=== PATIENT | male | born 1945 | race Two or more races ===

== ENCOUNTER 2017-10-15 23:31 | Outpatient (CLI) | payer SELFPAY | END 2017-10-15 23:32 | disposition EMS.NT | LOC: EMS 23:31 | PROVIDERS: ATTEND Surgery | DX: Z03.89 Encounter for observation for other suspected diseases and conditions ruled out (principal) ==

== ENCOUNTER 2021-10-23 08:00 | Outpatient (CLI) | payer MEDICARE | END 2021-10-23 23:59 | disposition home or self-care (01) | LOC: COV 08:00 | PROVIDERS: ATTEND Emergency Medicine | DX: K52.9 Noninfective gastroenteritis and colitis, unspecified (principal); Z20.822 Contact with and (suspected) exposure to COVID-19 ==

== ENCOUNTER 2021-11-06 15:21 | Emergency (ER) | payer MEDICARE ==
[2021-11-06 16:27] LABS: BASOPHILS # (AUTO) 0.1 10^3/uL (0.0-0.1); BASOPHILS % (AUTO) 0.4 %; EOSINOPHILS % (AUTO) 0.2 %; HCT - HEMATOCRIT 43.5 % (42.0-52.0); HGB - HEMOGLOBIN 14.6 g/dL (14.0-18.0); LYMPHOCYTES # (AUTO) 0.9 10^3/uL (1.5-3.5); LYMPHOCYTES % (AUTO) 5.4 %; MEAN CORPUSCULAR HEMOGLOBIN 31.7 pg (27.0-31.0); MEAN CORPUSCULAR HGB CONC 33.6 g/dL (32.0-36.0); MEAN CORPUSCULAR VOLUME 94.4 fL (80.0-94.0); MEAN PLATELET VOLUME 9.3 fL (7.4-11.4); MONOCYTES # (AUTO) 0.8 10^3/uL (0.0-1.0); MONOCYTES % (AUTO) 5.1 %; NEUTROPHILS # (AUTO) 14.2 10^3/uL (1.5-6.6); NEUTROPHILS % (AUTO) 88.2 %; PLT - PLATELET COUNT 233 10^3/uL (130-450); RED BLOOD COUNT 4.61 10^6/uL (4.70-6.10); RED CELL DISTRIBUTION WIDTH 13.2 % (12.0-15.0); WHITE BLOOD COUNT 16.1 x10^3/uL (4.8-10.8)
[2021-11-06] MEDS ORDERED: IOPAMIDOL-300 100 ML VIAL ONE (16:36)
[2021-11-06 16:40] LABS: ALBUMIN 3.7 g/dL (3.2-5.5); ALBUMIN/GLOBULIN RATIO 1.2 (1.0-2.2); BILIRUBIN,TOTAL 2.1 mg/dL (0.2-1.0); CALCIUM 9.4 mg/dL (8.5-10.3); CREATININE 1.6 mg/dL (0.6-1.2); POTASSIUM 4.2 mmol/L (3.5-5.0); TOTAL PROTEIN 6.9 g/dL (6.7-8.2)
[2021-11-06 16:47] LABS: BILIRUBIN,URINE NEGATIVE (NEGATIVE); GLUCOSE, URINE (UA) NEGATIVE (NEGATIVE); KETONES,URINE (UA) NEGATIVE (NEGATIVE); LEUKOCYTE ESTERASE, URINE MODERATE (NEGATIVE); NITRITE,URINE POSITIVE (NEGATIVE); OCCULT BLOOD,URINE LARGE (NEGATIVE); PROTEIN,URINE 100 mg/dL (NEGATIVE); UROBILINOGEN,URINE 0.2 (NORMAL) E.U./dL (NORMAL)
[2021-11-06 16:48] LABS: CLARITY,URINE CLOUDY (CLEAR)
[2021-11-06 17:02] LABS: BACTERIA,URINE Many /HPF (None Seen); RBC,URINE TNTC /HPF (0-5); SQUAMOUS EPITHELIAL CELL,UR NONE SEEN (<= Few); WBC,URINE >25 /HPF (0-3)
[2021-11-06] MEDS ORDERED: cefTRIAXone 1 GM in SODIUM CHLORIDE 0.9% MINIBAG 100 ML IV STA (17:02)
[2021-11-06] MEDS ORDERED: IOPAMIDOL-300 100 ML VIAL IVP ONE (17:04)
--- NOTE | 2021-11-06 17:05 | ED Physician Documentation ---
PD HPI ABD PAIN - Stated complaint Stated Complaint: ABD PX/CONSTIPATED - Chief complaint Chief Complaint: Abd Pain - History obtained from History obtained from: Patient, Family - History of Present Illness Timing - onset: Today Timing - duration: Hours Timing - details: Gradual onset, Still present Quality: Cramping, Pain Location: Suprapubic Improved by: Laying still Worsened by: Palpation, Other (attempting BM) Associated symptoms: Nausea, Constipation. 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 He has been out of the hospital now for 4 days and today he was not able to have a bowel movement and felt some pain in the suprapubic area and has come to the emergency department for evaluation. Review of Systems Constitutional: denies: Fever, Myalgias Eyes: denies: Decreased vision Ears: denies: Ear pain Nose: denies: Congestion Throat: denies: Sore throat Cardiac: denies: Chest pain / pressure, Palpitations Respiratory: denies: Dyspnea GI: reports: Abdominal Pain, Nausea, Constipation. denies: Vomiting : reports: Frequency, Incontinent. denies: Dysuria Skin: denies: Rash Musculoskeletal: denies: Neck pain, Back pain, Extremity pain Neurologic: denies: Generalized weakness, Focal weakness, Numbness PD PAST MEDICAL HISTORY - Present Medications Home Medications: Ambulatory Orders Medication Instructions Recorded Confirmed amLODIPine [Norvasc] 10 mg PO DAILY 11/06/21 11/06/21 - Allergies Allergies/Adverse Reactions: Allergies Allergy/AdvReac Type Severity Reaction Status Date / Time hydrochlorothiazide AdvReac Unknown Verified 11/06/21 15:41 PD ED PE NORMAL - Vitals Vital signs reviewed: Yes (tachy nad tachypneic hypertensive ) - General General: Alert and oriented X 3, No acute distress, Well developed/nourished - HEENT HEENT: Atraumatic, PERRL, EOMI - Neck Neck: Supple, no meningeal sign, No bony TTP - Cardiac Cardiac: No murmur, Other (tachy to 100) - Respiratory Respiratory: No respiratory distress, Clear bilaterally - Abdomen Abdomen: Normal bowel sounds, Soft, Other (mild suprapubic tenderness is reproducible ) - Back Back: No CVA TTP, No spinal TTP - Derm Derm: Normal color, Warm and dry, No rash - Extremities Extremities: No deformity, No edema - Neuro Neuro: Alert and oriented X 3, powerbuilder 2-12 intact, No motor deficit, No sensory deficit, Normal speech Eye Opening: Spontaneous Motor: Obeys Commands Verbal: Oriented GCS Score: 15 - Psych Psych: Normal mood, Normal affect Results - Vitals Vitals: Vital Signs - 24 hr 11/06/21 11/06/21 15:29 16:09 Temperature 37.6 C Heart Rate 110 H 102 H Respiratory 26 H Rate Blood Pressure 141/97 H 133/84 H O2 Saturation 96 94 Oxygen O2 Source Room air - Labs Labs: Laboratory Tests 11/06/21 11/06/21 11/06/21 16:20 16:20 16:30 WBC 16.1 H RBC 4.61 L Hgb 14.6 Hct 43.5 MCV 94.4 H MCH 31.7 H MCHC 33.6 RDW 13.2 Plt Count 233 MPV 9.3 Neut # (Auto) 14.2 H Lymph # (Auto) 0.9 L [place] # (Auto) 0.8 Eos # (Auto) 0.0 Baso # (Auto) 0.1 Absolute Nucleated RBC 0.00 Nucleated RBC % 0.0 Sodium 136 Potassium 4.2 Chloride 99 L Carbon Dioxide 24 Anion Gap 13.0 BUN 16 Creatinine 1.6 H Estimated GFR (MDRD) 42 L Glucose 139 H Calcium 9.4 Total Bilirubin 2.1 H AST 21 ALT 28 Alkaline Phosphatase 51 Total Protein 6.9 Albumin 3.7 Globulin 3.2 Albumin/Globulin Ratio 1.2 Lipase 21 L Urine Color DARK YELLOW Urine Clarity CLOUDY Urine pH 6.0 Ur Specific [place] 1.015 Urine Protein 100 H Urine Glucose (UA) NEGATIVE Urine Ketones NEGATIVE Urine Occult Blood LARGE H Urine Nitrite POSITIVE H Urine Bilirubin NEGATIVE Urine Urobilinogen 0.2 (NORMAL) Ur Leukocyte Esterase MODERATE H Urine RBC TNTC H Urine WBC >25 H Ur Squamous Epith Cells NONE SEEN Urine Bacteria Many H Ur Microscopic Review INDICATED Urine Culture Comments INDICATED - Rads (name of study) CT ab/pel with Radiology: Prelim report reviewed (Impression: 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 Obstructing calculi in the distal bilateral ureters with mild right and moderate left hydroureter nephrosis. Urologic consultation is recommended cholelithiasis.), EMP read indepedently, See rad report PD MEDICAL DECISION MAKING - ED course Complexity details: reviewed results, re-evaluated patient, considered differential, d/w patient, d/w family ED course: 76 y/o male with abdominal pain is found to have infection in the neobladder as well as bilateral obstructing stones in the ureter. He has elevated WBC, tachycardia, an infection source and obstruction of ureters bilaterally. He is administered IV saline and rocephin and a bed in a hospital with a urologist is sought. At shift change his care is turned over to Dr. Tejeda awaiting a bed for transfer. Departure - Departure Disposition: 02 Transfer Acute Care Hosp Clinical Impression: Urinary tract infection Qualifiers: Urinary tract infection type: acute cystitis Hematuria presence: with hematuria Qualified Code(s): N30.01 - Acute cystitis with hematuria Ureteral obstruction Qualifiers: Laterality: bilateral Qualified Code(s): N13.5 - Crossing vessel and stricture of ureter without hydronephrosis
[2021-11-06] MEDS ORDERED: SODIUM CHLORIDE 0.9% 1,000 ML IV STA ×4 (17:09→23:17)
--- NOTE | 2021-11-06 17:31 | CT Report ---
PROCEDURE: Abdomen/Pelvis W INDICATIONS: L suprapubic pain CONTRAST: IV CONTRAST: Isovue 300 ml: 100 PO CONTRAST: *NO PO CONTRAST TECHNIQUE: After the administration of intravenous contrast, 5 mm thick sections acquired from the diaphragms to the symphysis. 5 mm thick coronal and sagittal reformats were acquired. For radiation dose reducti on, the following was used: automated exposure control, adjustment of mA and/or kV according to celio ent size. COMPARISON: None. FINDINGS: Urinary system: There are postsurgical changes of what appears to represent total cystectomy and neobladder reconstru ction. Moderate left hydroureteronephrosis due to a 4 mm distal left ureteral calculus (series 3:67 and seri es 6:32). Moderate left perinephric fat stranding. Nonobstructing punctate calculus in the left upper pole collecting system on series 3 image 33. Mild right hydroureteronephrosis due to 7 mm distal right ureteral calculus (series 3:69 and series 6 :32). Remaining findings: Included portions of the lung bases demonstrate no acute airspace opacity. Mild bibasilar atelectasis. Coronary atherosclerosis. Calcified gallstone layering dependently in the gallbladder measuring up to 2.2 cm. No gallbladder wall thickening or pericholecystic fluid/fat stranding. No acute finding in the liver. Approximately 1.4 cm left hepatic hypodensity likely a cyst on the basis of conspicuity. Normal size and appearance of the spleen. Adrenal glands normal. Numerous pancreatic calcifications suggesting chronic pancreatitis or recurrent prior acute pancreati tis. No peripancreatic fat stranding currently. No pancreatic ductal dilatation. No free fluid or pneumoperitoneum. No abnormally dilated or thickened loops of bowel. Terminal ileal anastomosis noted. Sigmoid diverticulosis. No acute or suspicious osseous lesion. IMPRESSION: Post surgical changes of total cystectomy with neobladder reconstruction. Obstructing calculi in the distal bilateral ureters with mild right and moderate left hydroureteronephrosis. Urologic consultati on recommended. Cholelithiasis. Reviewed by: Steve Becerra MD on 11/06/2021 5:30 PM PST Approved by: Steve Becerra MD on 11/06/2021 5:30 PM PST Station ID: [id number]
--- NOTE | 2021-11-06 17:36 | ED Physician Documentation ---
ED Addendum - Addendum Addendum: 11/06/21 17:36 Patient received in signout from Dr. Jaramillo at shift change. Briefly this is a 76-year-old gentleman with history of neobladder and kidney stones who presents with abdominal pain and was found to be febrile with a white count of 16,000 and evidence of UTI. CT showing bilateral obstructing ureterolithiasis causing mild right and moderate left hydroureter nephrosis. Call to [facility] for potential transfer was initiated as he will need urologic consultation and he do es fit criteria for UTI with sepsis. Patient updated at bedside, he appears well and has no voiced needs at this time. 11/06/21 17:59 Discussed case by phone with Dr. Solorio at [facility]. He will try to find a bed but already notes they have tried [place] and they are full. He also authorized if we found a non-[facility] facility that would be authorized.
[2021-11-06] MEDS ORDERED: MORPHINE 2 MG/ML CARPUJECT IVP STA (18:31)
[2021-11-06] MEDS ORDERED: ACETAMINOPHEN 325 MG TABLET PO STA (18:31)
[2021-11-06 19:11] LABS: B. PARAPERTUSSIS- RESP PCR PAN NOT DETECTED; B. PERTUSSIS- RESP PCR PANEL NOT DETECTED; C. PNEUMONIAE- RESP PCR PANEL NOT DETECTED; CORONAVIRUS 229E-RESP PCR NOT DETECTED; CORONAVIRUS HKU1-RESP PCR NOT DETECTED; CORONAVIRUS NL63-RESP PCR NOT DETECTED; CORONAVIRUS OC43-RESP PCR NOT DETECTED; HUMAN METAPNEUMOVIRUS NOT DETECTED; INFLUENZA A- RESP PCR PANEL NOT DETECTED; INFLUENZA B - RESP PCR PANEL NOT DETECTED; M. PNEUMONIAE- RESP PCR PANEL NOT DETECTED; PARAINFLUENZA VIRUS 1 NOT DETECTED; PARAINFLUENZA VIRUS 2 NOT DETECTED; PARAINFLUENZA VIRUS 3 NOT DETECTED; PARAINFLUENZA VIRUS 4 NOT DETECTED; RHINOVIRUS/ENTEROVIRUS NOT DETECTED; RSV- RESP PCR PANEL NOT DETECTED; SARS-CoV-2 -RESP PCR PANEL NOT DETECTED
--- NOTE | 2021-11-06 22:00 | ED Physician Documentation ---
ED Addendum - Addendum Addendum: 11/06/21 22:00 Discussed case with [facility], will look for available bed 11/07/21 04:14 Case d/w Dr. Chery (hospitalist at [facility]), accepts patient for transfer, recommends IV fluid bolus of 30 ml/kg (which I then ordered as 2 liters, as he has already received one liter on previous shift). I broadened the antibiotic coverage by ordering vancomycin and meropenem (had received rocephin on earlier shift). Patient's blood pressures remained within normal limits during ED stay, briefly down to upper 90s systolic with subsequent readings showing improvement.
[2021-11-06 22:33] LABS: BASOPHILS # (AUTO) 0.1 10^3/uL (0.0-0.1); BASOPHILS % (AUTO) 0.4 %; EOSINOPHILS % (AUTO) 0.1 %; HCT - HEMATOCRIT 41.2 % (42.0-52.0); LYMPHOCYTES # (AUTO) 0.8 10^3/uL (1.5-3.5); LYMPHOCYTES % (AUTO) 5.3 %; MEAN CORPUSCULAR HEMOGLOBIN 31.7 pg (27.0-31.0); MEAN CORPUSCULAR VOLUME 93.2 fL (80.0-94.0); MEAN PLATELET VOLUME 9.2 fL (7.4-11.4); MONOCYTES # (AUTO) 0.6 10^3/uL (0.0-1.0); MONOCYTES % (AUTO) 4.1 %; NEUTROPHILS # (AUTO) 12.7 10^3/uL (1.5-6.6); NEUTROPHILS % (AUTO) 89.1 %; PLT - PLATELET COUNT 166 10^3/uL (130-450); RED BLOOD COUNT 4.42 10^6/uL (4.70-6.10); RED CELL DISTRIBUTION WIDTH 13.2 % (12.0-15.0); WHITE BLOOD COUNT 14.3 x10^3/uL (4.8-10.8)
[2021-11-06 22:42] LABS: CALCIUM 8.3 mg/dL (8.5-10.3); CREATININE 1.8 mg/dL (0.6-1.2); POTASSIUM 3.4 mmol/L (3.5-5.0)
[2021-11-06] MEDS ORDERED: VANCOMYCIN INJ 1.5 GM in SODIUM CHLORIDE 0.9% 500 ML IV STA (23:02)
[2021-11-06] MEDS ORDERED: MEROPENEM 1 GM in SODIUM CHLORIDE 0.9% MINIBAG 100 ML IV STA (23:03)
[2021-11-06] MEDS ORDERED: VANCOMYCIN 1 GM VIAL ONE (23:16)
[2021-11-07 01:43] VITALS: BP 104/69
== END 2021-11-07 02:06 | disposition short-term general hospital (02) ==
LOC: ED 15:21
DX: N30.01 Acute cystitis with hematuria (principal); N13.2 Hydronephrosis with renal and ureteral calculous obstruction; Z90.6 Acquired absence of other parts of urinary tract; K80.20 Calculus of gallbladder without cholecystitis without obstruction; Z20.822 Contact with and (suspected) exposure to COVID-19
CPT/HCPCS: 36415; 74177; 80048; 80053; 81001; 83605; 83690; 85025; 87040; 87077; 87086; 87150; 87181; 87631; 96361; 96365; 96366; 96367; 96375; 99284; 99285; A9270; J2185; J3370; Q9967; 0202U; 81003

== ENCOUNTER 2022-08-29 09:54 | Outpatient (CLI) | payer MEDICARE | END 2022-08-29 09:55 | disposition home or self-care (01) | LOC: LAB 09:54 | PROVIDERS: ATTEND Internal Medicine Gastroenterology | DX: Z01.812 Encounter for preprocedural laboratory examination (principal); K63.5 Polyp of colon; Z20.822 Contact with and (suspected) exposure to COVID-19 ==